=== PATIENT | male | born 1960 | race Caucasian/White ===

== ENCOUNTER 2023-06-11 08:30 | Outpatient (REF) | payer BC, SELFPAY ==
[2023-06-11 11:45] LABS: MANUAL DIFF FLAG NO
[2023-06-11 11:51] LABS: Basophils Absolute Auto 0.1 X10*3/uL (0.0-0.2); Basophils Percent Auto 0.8 % (0-2); Eosinophils Absolute Auto 0.4 X10*3/uL (0.0-0.4); Eosinophils Percent Auto 4.8 % (0-4); Hematocrit 44.8 % (42.0-52.0); Hemoglobin 14.2 g/dl (14.0-18.0); Imm Gran Abs Auto 0.08 X10*3/uL (0.00-0.03); Lymphocytes Absolute Auto 1.5 X10*3/uL (1.2-4.9); Lymphocytes Percent Auto 18.9 % (20-40); Mean Corpuscular HGB Conc 31.7 g/dl (31.0-36.0); Mean Corpuscular Hemoglobin 28.9 pg (27.0-33.0); Mean Corpuscular Volume 91.1 fL (80.0-98.0); Mean Platelet Volume 10.5 fL (9.4-12.4); Monocytes Absolute Auto 0.7 X10*3/uL (0.1-1.2); Monocytes Percent Auto 8.4 % (2-11); Neutrophils Absolute Auto 5.2 x10*3/uL (2.0-8.3); Neutrophils Percent Auto 66.1 % (45-73); Platelet Count 225 X10*3/uL (160-400); Red Blood Count 4.92 X10*6/uL (4.60-5.80); Red Cell Distribution Width 13.7 % (11.0-16.0); White Blood Count 7.9 X10*3/uL (4.8-10.8)
[2023-06-11 12:43] LABS: Alanine Aminotransferase 16 U/L (0-40); Albumin Level 4.3 g/dL (3.5-5.0); Alkaline Phosphatase 56 U/L (39-117); Anion Gap 12 (12-20); Aspartate Amino Transferase 20 U/L (5-37); Bilirubin Total 0.5 mg/dL (0.0-1.0); Blood Urea Nitrogen 21 mg/dL (9-16); Calcium 9.6 mg/dL (8.4-10.2); Carbon Dioxide 28 mmol/L (22-29); Chloride 106 mmol/L (96-108); Cholesterol 252 mg/dL (<200); Estimated Glomerular Filt Rate > 60; Glucose Random 113 mg/dL (60-115); HDL Cholesterol 89 mg/dL (>40); LDL Cholesterol Calculated 147 mg/dL (<100); Potassium 4.3 mmol/L (3.3-5.1); Sodium 142 mmol/L (135-145); Total Protein 7.1 g/dL (6.5-8.0); Triglycerides 80 mg/dL (<150)
[2023-06-11 12:53] LABS: Prostate Specific Antigen 0.27 ng/mL (<0.05-4.0)
== END 2023-06-11 08:31 | disposition home or self-care (01) ==
LOC: HO.HHCL 08:30
PROVIDERS: Visit Provider Internal Medicine Geriatric Medicine
DX: Z00.00 Encounter for general adult medical examination without abnormal findings (principal); Z12.5 Encounter for screening for malignant neoplasm of prostate; I10 Essential (primary) hypertension; E78.00 Pure hypercholesterolemia, unspecified
CPT/HCPCS: 36415; 80053; 80061; 84153; 85025

== ENCOUNTER 2025-01-12 08:26 | Outpatient (REF) | payer BC, SELFPAY ==
--- OUTSIDE RECORDS SUMMARY | 2025-01-07 09:30 | XMS_ITS | Encounter Summary ---
Author Organization [employer] Address [address] [facility] 7t [place] [address] Care Team Providers Care Safe Technician Name Role Phone Name, Prashant BARKER Primary Care Provider [phone] Reason for Visit * Reason Comments Blood Pressure Check Encounter Details Date Type Department Care Team ([facility] st Contact Info) Description 01/07/2025 9:30 AM EDT Telemedicine [facility] MEDICINE [address] [place], [place] [phone] La Beltran RN Essential hypertension Social History Tobacco Use Types Packs/Day Years Used Date Smoking Tobacco: Former Cigarettes Q uit: 10/22/2022 Smokeless Tobacco: Never Alcohol Use Standard Drinks/Week Comments Not Currently 0 (1 standard drink = 0.6 oz pur e alcohol) Quit in the 90s Depression Answer Date Recorded Patient Health Questionnaire-9 Score 0 12/23/2024 Patient Health Questionnaire-9 Score 0 12/23/2024 Last PHQ-9: Questionnaire Data Not on file 0 12/23/2024 Housing Stability Answer Date Recorded What is your housing situation today? I have artur jamison 12/23/[address] you li ve. Do you have problems with any of the following? None of the above 12/23/2024 Food Insecurity Answer Date Recorded Within the past 12 months, y ou worried that your food would run out before you got money to buy more: Never True 12/23/2024 Within the past 12 months,th e food you bought just didn't last and you didn't have enough money to get more: Never True Transportation Answer Date Recorded In the past 12 months, has l ack of transportation kept you from medical appts, meetings, work or from getting things needed for daily living? No 12/23/2024 Utilities Answer Date Recorded In the past 12 months, has t he electric, gas, oil or water company threatened to shut off services in your home? No 12/23/2024 Depression Answer Date Recorded Patient Health Questionnaire-2 Score 0 12/23/2024 Internet Access Answer Date Recorded Internet Access Q1 Yes 12/23/2024 Internet Access Q2 Not on file 12/23/2024 Sex and Gender Information Value Date Recorded Sex Assigned at Male 03/04/2022 10:29 AM EDT Legal Sex Male 10:29 AM EDT Gender Identity Male 03/04/2022 10:29 AM EDT Sexual Orientation Straight 03/04/2022 10 :29 AM EDT documented as of this encounter Progress Notes * La Beltran RN - 01/07/2025 9:30 AM EDT SUBJECTIVE: Anibal Swift is a 64 y.o. year old male who presents for Blood Pressure Check Recommendations at last visit were: Prashant Logan MD: Elevated blood pressure reading Comments: BP is normal at home. I did not start any medication. I prescribed a new BP monitor. Follow-up televisit with team nurses for BP check next week. Today, Anibal Swift does not complain of any blurred vision, shortness of breath, chest pain, dizziness, or headaches. Pt reports they will get head pressure occasionally, but denies current symptom. Pt reports they are tired at times but denies dizziness. Pt denies smoking cigarettes or drinkingalcohol. Pt reports they exercise by walking the dog. Pt reports they are constantly up and moving doing yard work, walking the dog, etc. Pt reports they typically do not eat breakfast. Pt reports they typically eat leftovers for lunch. Pt reports dinner consists of vegetables, meat (chicken, pork,fish), and a starch. Current Medications[1] Patient Active Problem List Diagnosis Date Noted Social phobia 11/18/2023 Tubular adenoma of colon 05/29/2023 Chronic obstructive lung disease ([facility]) 10/10/2017 Opioid abuse ([facility]) 09/20/2015 Essential hypertension 06/14/2015 Chronic pain 05/26/2013 High cholesterol 06/19/2011 Cervical spine disease 07/05/2010 Radicular pain in left arm 07/05/2010 Neck pain 02/16/2008 Depression 02/02/2008 Anxiety 02/02/2008 Tobacco use disorder 02/02/2008 Asthma 05/06/2005 Tubular adenoma 05/28/2022 Atorvastatin and Simvastatin BP Readings from Last 4 Encounters: 12/23/24 (!) 175/100 11/18/23 (!) 185/85 05/29/23 166/85 05/28/22 (!) 178/92 Pulse Readings from Last 4 Encounters: 12/23/24 94 11/18/23 70 05/29/23 69 05/28/22 84 OBJECTIVE: BP and HR Lo12/23/24 PM: 106/73 HR 84 12/24/24 AM: 114/83 HR 65 12/24/24 PM: 109/92 HR 70 12/25/24: Did not take BP this day 12/26/24 AM: 104/76 HR 60 12/26/24 PM: 128/114 HR 73 12/27/24 AM: 106/75 HR 59 12/27/24 PM: 94/74 HR 78 12/28/24 AM: 115/75 HR 61 12/28/24 PM: 81/65 HR 82 12/29/24 AM: 112/72 HR 58 12/29/24 PM: 122/82 HR 71 12/30/24 AM: 113/70 HR 60 12/30/24 PM: 128/82 HR 73 12/31/24 AM: 128/75 HR 70 12/31/24 PM: 101/68 HR 79 01/01/25 AM: 123/82 HR 56 01/01/25 PM: 123/80 HR 85 01/02/25 AM: 135/88 HR 57 01/02/25 PM: 115/87 HR 83 01/03/25 AM: 130/81 HR 60 01/03/25 PM: 99/64 HR 82 01/04/25 AM: 142/90 HR 58 01/04/25 PM: 112/73 HR 76 01/05/25 AM: 127/82 HR 61 01/05/25 PM: 115/76 HR 79 01/06/25 AM: 151/92 HR 62 01/06/25 PM: 94/70 HR 82 ASSESSMENT: Achieve goal blood pressure of <140/90 or <130/80 PLAN: Today's findings forwarded to PCP to review and advise Anibal Swift advised to continue exercise. Advised pt to avoid fried, fatty, processed foods, foods high in salt. Advised to eat fruits, vegetables, baked chicken, turkey, and fish. Anibal Swift agreeable to plan discussed at today's visit. Future Appointments Date Time Provider Department Center 03/14/2025 11:15 AM Prashant Logan MD MEDICINE [facility] La Beltran RN [1] Current Outpatient Medications Medication Sig Dispense Refill albuterol (2.5 MG/3ML) 0.083% nebulizer solution INHALE 3ML BY NEBULIZATION ROUTE FOUR TIMES EVERY DAY 90 mL 1 albuterol 108 (90 Base) MCG/ACT inhaler INHALE 2 PUFFS BY MOUTH EVERY 6 HOURS IF NEEDED FOR WHEEZING 18 g 3 Anoro Ellipta 62.5-25 MCG/ACT aerosol powder INHALE 1 PUFF BY INHALATION ROUTE EVERY DAY AT THE SAME TIME EACH DAY 60 each 1 Blood Pressure kit Please check BP at home once a day 1 kit 0 No current facility-administered medications for this visit. documented in this encounter Plan of Treatment Upcoming Encounters Date Type Department Care Team (Late st Contact Info) Description 03/14/2025 11:15 AM EST Office Visit [facility] MEDICINE [address] [place] [phone] Prashant Logan MD [address] [place] [phone] documented as of this encounter Visit Diagnoses Diagnosis Essential hypertension Unspecified essential hypertension documented in this encounter Additional Health Concerns Assessment Noted Time PHQ-9 Depression Total Score: 0 12/24/19 25 10:17 AM EDT documented as of this encounter Care Teams Safe Technician Relationship Specialty Start Date End Date Prashant Logan MD [address] [place] [phone] PCP - General Family Medicine 06/14/15 documented as of this encounter
--- OUTSIDE RECORDS SUMMARY | 2025-01-12 09:44 | XMS_ITS | Encounter Summary ---
Author Organization [employer] Address [address] [facility] 7 [place] [address] Care Team Providers Care Match Maker Name Role Phone Name, Prashant BARKER Primary Care Provider Encounter Details Date Type Department Care Team (Late st Contact Info) Description 11/18/2024 Orders Only [facility] [address] [place], [place] [phone] Provider, MD [facility] Social History Tobacco Use Types Packs/Day Years Used Date Smoking Tobacco: Former Cigarettes Q uit: 10/22/2022 Smokeless Tobacco: Never Alcohol Use Standard Drinks/Week Comments Not Currently 0 (1 standard drink = 0.6 oz pur e alcohol) Quit in the 90s Depression Answer Date Recorded Patient Health Questionnaire-9 Score 0 05/29/2023 Patient Health Questionnaire-9 Score 0 05/29/2023 Last PHQ-9: Questionnaire Data Not on file 0 05/29/2023 Housing Stability Answer Date Recorded What is your housing situation today? I have artur jamison 03/15/[address] you li ve. Do you have problems with any of the following? None of the above 03/15/2023 Food Insecurity Answer Date Recorded Within the past 12 months, y ou worried that your food would run out before you got money to buy more: Never True 03/15/2023 Within the past 12 months,th e food you bought just didn't last and you didn't have enough money to get more: Never True 03/2023 Transportation Answer Date Recorded In the past 12 months, has l ack of transportation kept you from medical appts, meetings, work or from getting things needed for daily living? No 03/15/2023 Utilities Answer Date Recorded In the past 12 months, has t he electric, gas, oil or water company threatened to shut off services in your home? No 03/15/2023 Depression Answer Date Recorded Patient Health Questionnaire-2 Score 0 05/29/2023 Sex and Gender Information Value Date Recorded Sex Assigned at Male 03/04/2022 10:29 AM EDT Legal Sex Male 10:29 AM EDT Gender Identity Male 03/04/2022 10:29 AM EDT Sexual Orientation Straight 03/04/2022 10 :29 AM EDT documented as of this encounter Plan of Treatment Upcoming Encounters Date Type Department Care Team (Late st Contact Info) Description 03/14/2025 11:15 AM EST Office Visit [facility] MEDICINE [address] [place] [id number] Name, MD Prashant [address] [place] [phone] documented as of this encounter Procedures Procedure Name Priority Date/Time Associated Diagnosis Comments CT LUNG SCREENING Routine 11/14/2024 10:48 AM EDT documented in this encounter Results * CT Lung Screening Low dose (11/14/2024 10:48 AM EDT) Anatomical Region Laterality Modality Lung Computed Tomogra phy us Historical Provider MD AGUERO CT PROCEDURES Final R esult documented in this encounter Visit Diagnoses Not on filedocumented in this encounter Additional Health Concerns Assessment Noted Time PHQ-9 Depression Total Score: 0 05/29/19 24 9:15 AM EST documented as of this encounter Care Teams Match Maker Relationship Specialty Start Date End Date Name, MD Prashant [address] [place] [id number] PCP - General Family Medicine 06/14/15 documented as of this encounter
--- OUTSIDE RECORDS SUMMARY | 2025-01-12 09:44 | XMS_ITS | Clinical Summary ---
Author Organization [facility] Address [address] [place] [address] Phone Care Team Providers Care Brimmer Blocker Name Role Phone Unavailable Primary Care Provider Unavailabl e Allergies No known active allergies Encounters Date Type Department Care Team Description 11/14/2024 7:31 AM EDT - 11/14/2024 11:59 PM EDT Hospital Encounter [facility] CT Scan [address] [place] [address] Encounter for screening for malignant neoplasm of respiratory organs; Nicotine dependence, cigarettes, uncomplicated Discharge Disposition: Home or Self Care 10/21/2024 Telephone Lung Screening Program - [place] [address] [facility] [address] [place] [phone] Mere Ernst [place] from Last 3 Months Social History Tobacco Use Types Packs/Day Years Used Date Smoking Tobacco: Never Assessed Sex and Gender Information Value Date Recorded Sex Assigned at Not on file Legal Sex Male 4:01 AM EST Gender Identity Not on file Sexual Orientation Not on file Plan of Treatment Health Maintenance Due Date Last Done Comments Hepatitis A Vaccines (1 of 2 - Risk 2-dose series) 1977 Zoster Vaccines (1 of 2) 2008 RSV Immunization Adult Patients (1 - Risk 60-74 years 1-dose series) 2018 Pneumococcal Vaccine: 50+ Years (2 of 2 - PCV) 06/12/2019 06/12/2018 Abdominal Aortic Aneurysm (AAA) Screen 04/07/2022 Colorectal Cancer Screening: Colonoscopy 04/07/2022 Hepatitis C Screening 04/07/2022 Medicare Annual Wellness Visit 04/07/2022 Social Influencers of Health Screening 04/07/2022 Hypertension/CHF/CAD Annual BMP Blood Test 04/20/2022 Falls Risk Assessment 11/11/2023 Depression Screening 05/05/2024 COVID-19 Vaccine ( season) 2025 05/28/2022, 04/19/2021, 08/13/2020, Additional history exists Influenza Vaccine (#1) 2025 2, 02/21/2021, 01/24/2020, Additional history exists DTaP,Tdap,and Td Vaccines (4 - Td or Tdap) 11/15/2026 11/15/2016, 02/04/2003, 02/04/2003 Cholesterol Screening (Lipid Panel) 06/11/2028 06/11/2023 HIB Vaccines Aged Out No longer eligi ble based on patient's age to complete this topic HPV Vaccines Aged Out No longer eligi ble based on patient's age to complete this topic Hepatitis B Vaccines Aged Out No long er eligible based on patient's age to complete this topic IPV Vaccines Aged Out No longer eligi ble based on patient's age to complete this topic MMR Vaccines Aged Out No longer eligi ble based on patient's age to complete this topic Meningococcal ACWY Vaccine Aged Out N o longer eligible based on patient's age to complete this topic Meningococcal B Vaccine Aged Out No l onger eligible based on patient's age to complete this topic RSV Immunization Patients Under 20 months Aged Out No longer eligible based on patient's age to complete this topic Varicella Vaccines Aged Out No longer eligible based on patient's age to complete this topic Procedures Procedure Name Priority Date/Time Associated Diagnosis Comments CT LUNG SCREENING Routine 11/14/2024 7:4 0 AM EDT Encounter for screening for malignant neoplasm of respiratory organs Nicotine dependence, cigarettes, uncomplicated from Last 3 Months Results * CT Lung Screening (11/14/2024 7:40 AM EDT) Anatomical Region Laterality Modality Chest Computed Tomogra phy 11/16/2024 3:25 PM EDT Impressions 11/16/2024 3:33 PM EDT Impression: No suspicious developing pulmonary nodule. No significant change. Lung-RADS Category: Lung-RADS 2: Nodule(s) with benign appearance or behavior. Continue annual screening with Low Dose Chest CT in 12 months. [employer] IRA ([id number]) -------- FINAL REPORT -------- Dictated By: Mary Singh Dictated Date: 11/16/2024 15:25 ET Assigned Physician: Mary Singh Reviewed and Electronically Signed By: Mary Singh Signed Date: 11/16/2024 15:33 ET Workstation ID: [id number] Transcribed By: Self Edit Transcribed Date: 11/16/2024 15:25 ET Narrative 11/16/2024 3:33 PM EDT History: 64 year-old 53 pack-year current smoker, asymptomatic, for lung cancer screening. Comparison: 11/12/23 Technique: Helical volumetric imaging of the thorax was performed, using low- dose technique, without IV contrast. DLP: 122.44 mGy/cm CTDIvol: 3.22 mGy GE JuiceBoxJunglepeed VCT Iterative reconstruction technique Findings: Lungs and Airways: The trachea and central bronchial tree remain patent. Diffuse bronchial wall thickening is again seen, consistent with bronchitis in this setting. Centrilobular emphysema is again noted. Rare sub-4 mm solid, noncalcified pulmonary nodules are without significant change. No suspicious developing nodule is seen. Pleura: No pleural or pericardial effusions are seen. Base of neck, mediastinum and heart: The heart remains normal in size. Mild coronary artery calcification is noted. The left vertebral artery arises from the aortic arch, an anatomic variant. No developing thoracic lymphadenopathy is seen. Soft tissues: The overlying soft tissues are unremarkable. Abdomen: This study was performed without contrast and with lower than standard dose. These factors reduce the sensitivity for detection of small lesions in the upper abdomen. A 5 mm hepatic cyst is unchanged. Calcifications scattered throughout the pancreatic parenchyma may represent underlying chronic pancreatitis, unchanged. Procedure Note Mary Singh MD - 11/16/2024 History: 64 year-old 53 pack-year current smoker, asymptomatic, for lungcancer screening. Comparison: 11/12/23 Technique: Helical volumetric imaging of the thorax was performed, usinglow-dose technique, without IV contrast. DLP: 122.44 mGy/cm CTDIvol: 3.22 mGy Perficientpeed VCT Iterative reconstruction technique Findings: Lungs and Airways: The trachea and central bronchial tree remain patent.Diffuse bronchial wall thickening is again seen, consistent withbronchitis in this setting. Centrilobular emphysema is again noted. Rare sub-4 mm solid, noncalcified pulmonary nodules are withoutsignificant change. No suspicious developing nodule is seen. Pleura: No pleural or pericardial effusions are seen. Base of neck, mediastinum and heart: The heart remains normal in size.Mild coronary artery calcification is noted. The left vertebral arteryarises from the aortic arch, an anatomic variant. No developing thoraciclymphadenopathy is seen. Soft tissues: The overlying soft tissues are unremarkable. Abdomen: This study was performed without contrast and with lower thanstandard dose. These factors reduce the sensitivity for detection of smalllesions in the upper abdomen. A 5 mm hepatic cyst is unchanged.Calcifications scattered throughout the pancreatic parenchyma mayrepresent underlying chronic pancreatitis, unchanged. IMPRESSION: Impression: No suspicious developing pulmonary nodule. No significant change. Lung-RADS Category: Lung-RADS 2: Nodule(s) with benign appearance orbehavior. Continue annual screening with Low Dose Chest CT in 12 months. [employer] [place] ([id number]) -------- FINAL REPORT -------- Dictated By: Mary Singh Dictated Date: 11/16/2024 15:25 ET Assigned Physician: Mary Singh Reviewed and Electronically Signed By: Mary Singh Signed Date: 11/16/2024 15:33 ET Workstation ID: [id number] Transcribed By: Self Edit Transcribed Date: 11/16/2024 15:25 ET Susana Trent MD IM CT PROCEDURES Final Result from Last 3 Months Insurance BLUE [employer] - [place] MEDICARE ADVANTAGE
--- OUTSIDE RECORDS SUMMARY | 2025-01-12 09:44 | XMS_ITS | Encounter Summary ---
Author Organization [employer] Address [address] [facility] 7t [place] [address] Care Team Providers Care Equal Opportunity Specialist Name Role Phone Name, Prashant BARKER Primary Care Provider [phone] Encounter Details Date Type Department Care Team (Late st Contact Info) Description 05/13/2022 Orders Only [facility]ED[facility] [address] [place] [address] Florencia Garber LPN Social History Tobacco Use Types Packs/Day Years [...] Description 03/14/2025 11:15 AM EST Office Visit [facility] MEDICINE [address] [place] [address] Name, MD Prashant [address] [place] [address] documented as of this encounter Visit Diagnoses Not on filedocumented in this encounter Care Teams Equal Opportunity Specialist Relationship Specialty Start Date End Date NamePrashant MD [address] [place] [address] PCP - General Family Medicine 06/14/15 documented as of this encounter
--- OUTSIDE RECORDS SUMMARY | 2025-01-12 09:44 | XMS_ITS | Encounter Summary ---
Author Organization [employer] Address [address] [facility] [address]t [place] [address] Care Team Providers Care Special Education Teaching Assistant Name Role Phone Name, Prashant BARKER Primary Care Provider [phone] Encounter Details Date Type Department Care Team (Latest Contact Info) Description 01/07/2025 Travel Social History Tobacco Use Types Packs/Day Years [...] Description 03/14/2025 11:15 AM EST Office Visit [facility] MEDICINE [address] [place] [address] Name, MD Prashant [address] [place] [address] documented as of this encounter Visit Diagnoses Not on filedocumented in this encounter Additional Health Concerns Assessment Noted Time PHQ-9 Depression Total Score: 0 12/24/19 25 10:17 AM EDT documented as of this encounter Care Teams Special Education Teaching Assistant Relationship Specialty Start Date End Date Name, MD Prashant [address] [place] [phone] PCP - General Family Medicine 06/14/15 documented as of this encounter
--- OUTSIDE RECORDS SUMMARY | 2025-01-12 09:44 | XMS_ITS | Encounter Summary ---
Author Organization [employer] Address [address] [facility] 7t [place] [address] Care Team Providers Care Clerical Warehouseman Name Role Phone Name, Prashant BARKER Primary Care Provider [phone] Encounter Details Date Type Department Care Team (Late st Contact Info) Description 01/10/2025 Telephone [facility] MEDICINE [address] [place], [place] [phone] Name, MD Prashant [address] [place], [place] [phone] Social History Tobacco Use Types Packs/Day Years [...] AM EDT documented as of this encounter Miscellaneous Notes * Telephone Encounter - La Beltran RN - 01/10/2025 2:22 PM EDT Incoming TC from pt. Advised pt per below PCP message, BP is good and no med changes at this time. Pt verbalized understanding and denies questions at this time. ----- Message from Prashant Logan MD sent at 01/07/2025 4:38 PM EDT ----- BP is good, no med changes * Telephone Encounter - Prashant Zapien - 01/10/2025 2:18 PM EDT Tc from pt returning call back regarding prior message. Contact pt at [phone] * Telephone Encounter - La Beltran RN - 01/10/2025 8:59 AM EDT TC placed to pt to inform and advise of below PCP message. No answer, call immediately goes to message, I'm sorry, your call did not go through. Will you please try your call again. TC placed to spouse's phone number. No answer, LVM to call office back and ask to speak to the blue team nurses. ----- Message from Prashant Logan MD sent at 01/07/2025 4:38 PM EDT ----- BP is good, no med changes documented in this encounter Plan of Treatment Upcoming Encounters Date Type Department Care Team (Late st Contact Info) Description 03/14/2025 11:15 AM EST Office Visit [facility] MEDICINE [address] [place] [address] Name, MD Prashant [address] [place] [address] documented as of this encounter Visit Diagnoses Not on filedocumented in this encounter Additional Health Concerns Assessment Noted Time PHQ-9 Depression Total Score: 0 12/24/19 25 10:17 AM EDT documented as of this encounter Care Teams Clerical Warehouseman Relationship Specialty Start Date End Date Name, MD Prashant [address] [place] [phone] PCP - General Family Medicine 06/14/15 documented as of this encounter
--- OUTSIDE RECORDS SUMMARY | 2025-01-12 09:44 | XMS_ITS | Encounter Summary ---
Author Organization [employer] [facility] Address [address] [facility] 7t [place] [address] Care Team Providers Care Awning Maker Name Role Phone Name, Prashant BARKER Primary Care Provider [phone] Encounter Details Date Type Department Care Team (Late st Contact Info) Description 10/04/[address] [phone] NamePrashant MD [address] [place] [address] [phone] Social History Tobacco Use Types Packs/Day Years Used Date Smoking Tobacco: Every Day Cigarettes Smokeless Tobacco: Never Depression Answer Date Recorded Patient Health Questionnaire-2 Score 0 05/28/2022 Sex and Gender Information Value Date Recorded Sex Assigned at Male 03/04/2022 10:29 AM EDT Legal Sex Male 10:29 AM EDT Gender Identity Male 03/04/2022 10:29 AM EDT Sexual Orientation Straight 03/04/2022 10 :29 AM EDT documented as of this encounter Plan of Treatment Upcoming Encounters Date Type Department Care Team (Late st Contact Info) Description 03/14/2025 11:15 AM EST Office Visit [address] [address] Prashatn Logan MD [address] [place] [address] [phone] documented as of this encounter Procedures Procedure Name Priority Date/Time Associated Diagnosis Comments COLONOSCOPY Routine 07/18/2016 1:51 PM EDT documented in this encounter Results * Colonoscopy (07/18/2016 1:51 PM EDT) Colonoscopy Normal Normal Narrative Rae Novak - 07/18/2016 1:51 PM EDT Recommended 5 year follow up us Historical Provider HEALTH MAINTENANCE Final Result documented in this encounter Visit Diagnoses Not on filedocumented in this encounter Care Teams Awning Maker Relationship Specialty Start Date End Date Name, MD Prashant [address] [place] [address] PCP - General Family Medicine 06/14/15 documented as of this encounter
--- OUTSIDE RECORDS SUMMARY | 2025-01-12 09:44 | XMS_ITS | Clinical Summary ---
Author Organization [employer] Address [address] [facility] [facility] [address] [place] [address] Care Team Providers Care Shipping/Receiving Manager Name Role Phone Name, Prashant BARKER Primary Care Provider [phone] Allergies Active Allergy Reactions Criticality Noted Date Comments Atorvastatin 02/15/2015 Muscle pain Simvastatin 06/14/2015 Medications albuterol 108 (90 Base) MCG/ACT inhalerIndicati ons:Chronic obstructive pulmonary disease, unspecified COPD type (CMS/HCC) INHALE 2 PUFFS BY MOUTH EVERY 6 HOURS IF NEEDED FOR WHEEZING 18 g 3 3 Active albuterol (2.5 MG/3ML) 0.083% nebulizer solution INHALE 3ML BY NEBULIZATION ROUTE FOUR TIMES EVERY DAY 90 mL 1 3 Active Anoro Ellipta 62.5-25 MCG/ACT aerosol powderIndicatio ns:Chronic obstructive pulmonary disease, unspecified COPD type (CMS/HCC) INHALE 1 PUFF BY INHALATION ROUTE EVERY DAY AT THE SAME TIME EACH DAY 60 each 1 5 Active Blood Pressure kit Please check BP at home once a day 1 kit 5 Active Active Problems Problem Noted Date Diagnosed Date Social phobia 11/18/2023 Tubular adenoma of colon 05/29/2023 Tubular adenoma 05/28/2022 Overview (05/28/2022): Patient had colonoscopy 2016 at [facility], he was recommended repeat in 5 years Chronic obstructive lung disease 10/10/2017 Opioid abuse 09/20/2015 Essential hypertension 06/14/2015 Chronic pain 05/26/2013 High cholesterol 06/19/2011 Cervical spine disease 07/05/2010 Radicular pain in left arm 07/05/2010 Neck pain 02/16/2008 Overview (05/23/2022): With radiation to both arm with L>R and no weakness. Depression 02/02/2008 Anxiety 02/02/2008 Tobacco use disorder 02/02/2008 Asthma 05/06/2005 Resolved Problems Problem Noted Date Diagnosed Date Resolved Date Low back pain 02/02/2008 05/29/2023 Overview (05/23/2022): Failed low back surgery. Chronic low back pain with radiation to the legs L>R. Intra-abdominal hernia 02/02/200805/28 Overview (05/23/2022): IMO update Encounters Date Type Department Care Team Description 01/10/[address] [address] Prashant Logan MD 01/07/2025 9:30 AM EDT Telemedicine [address] [address] La Beltran RN Essential hypertension 01/07/2025 Travel 12/23/2024 9:45 AM EDT Office Visit [address] [address] Prashant Logan MD Chronic obstructive pulmonary disease, unspecified COPD type (CMS/HCC) (Primary Dx); Elevated blood pressure reading; Screening for colon cancer; Encounter for immunization; Screening for cholesterol level 12/23/2024 Travel 12/22/2024 Telephone [facility] [address] [place] [id number] Prashant Logan MD Chart Prep 12/16/2024 Patient Outreach [facility] [address] [place], [place] [phone] Prashant Logan MD Pre-visit Planning ([facility] unable to reach, disconnected) 11/18/2024 Orders Only [facility] [address] [place], [place] [phone] Provider, MD Solis from Last 3 Months Immunizations Immunization Administration Dates Next Due Influenza Injectable Quadriv alant Preservative Free IIV4 MDCK 01/28/2022,02/21/2021 Influenza injectable quadriv alent IIV4 with preservative 02/19/2017,02/22/2016 Influenza injectable quadriv alent preservative free 01/24/2020,02/15/2019,02/14/2019,04/10 Influenza, IIV3, injectable 02/15/2015,1 ,02/03/2013,01/13,05/15/2010,05/09/2009,02/02/2008 Novel [id number], preservative-free 05/09/2009 Pfizer Covid-19 Vaccine 12+ Bivalent 05/28/2022 Pneumococcal Conjugate PCV 20 12/23/2024 Pneumococcal Polysaccharide PPSV23 06/12/2018 Td (adult), unspecified 02/04/2003 Tdap 11/15/2016,02/04/2003 Social History Tobacco Use Types Packs/Day Years Used Date Smoking Tobacco: Former Cigarettes Q uit: 10/22/2022 Smokeless Tobacco: Never Tobacco Cessation:Counseling Given: Not Answered Alcohol Use Standard Drinks/Week Comments Not Currently [...] Orientation Straight 03/04/2022 10 :29 AM EDT Last Filed Vital Signs Vital Sign Reading Time Taken Comments Blood Pressure 175/100 12/23/2024 10:01 AM EDT Pulse 94 12/23/2024 9:47 AM EDT Temperature 36.6 C (97.8 F) 12/23/2024 9:47 AM EDT Respiratory Rate 18 12/23/2024 9:47 AM EDT Oxygen Saturation 98% 12/23/2024 9:47 AM EDT Inhaled Oxygen Concentration - - Weight 64.9 kg (143 lb) 12/23/2024 9:47 AM EDT Height 170.2 cm (5' 7 ) 12/23/2024 9:47 AM EDT Body Mass Index 22.4 12/23/2024 9:47 AM EDT Plan of Treatment Upcoming Encounters Date Type Department Care Team (Late st Contact Info) Description 03/14/2025 11:15 AM EST Office Visit [facility] [address] [place] [address] Name, MD Prashant [address] [place] [address] Health Maintenance Due Date Last Done Comments CT Colonography 1958 FIT DNA/Cologuard 1958 FIT 1958 FOBT 1960 Sigmoidoscopy 1960 Hepatitis C Screening 1976 Zoster Vaccines (1 of 2) 2008 RSV Patients and Patients Aged 60 years or older (1 - Risk 60-74 years 1-dose series) 2018 Colonoscopy 07/18/2021 07/18/2016 Colorectal Cancer Screening 07/18/2021 COVID-19 Vaccine ( season) 2025 05/28/2022, 04/19/2021, 08/13/2020, Additional history exists Influenza Vaccine (#1) 2025 2, 02/21/2021, 01/24/2020, Additional history exists Alcohol/Substance Use Screening 12/23/2025 12/23/2024 Depression Screening 12/23/2025 12/23/2024, 12/24/19 25 SDOH Screening 12/23/2025 12/23/2024 Tobacco Screening 12/23/2025 12/23/2024 DTaP/Tdap/Td Vaccines (4 - Td or Tdap) 11/15/2026 11/15/2016, 02/04/2003, 02/04/2003 Lipid Panel 06/11/2028 06/11/2023, 06/13/2022 Pneumococcal Vaccine: 50+ Years Completed 12/23/2024, 06/12/2018 HIB Vaccines Aged Out No longer eligi ble based on patient's age to complete this topic HPV Vaccines Aged Out No longer eligi ble based on patient's age to complete this topic Hepatitis A Vaccines Aged Out No long er eligible [...] patient's age to complete this topic Meningococcal Vaccine Aged Out No andrew gideon eligible based on patient's age to complete this topic RSV under 20 months Aged Out No longe r eligible based on patient's age to complete this topic Rotavirus Vaccines Aged Out No longer eligible based on patient's age to complete this topic Procedures Procedure Name Priority Date/Time Associated Diagnosis Comments CT LUNG SCREENING Routine 11/14/2024 10: 48 AM EDT LIPID PANEL, STANDARD Routine 06/11/2023 8:32 AM EST High cholesterol HM COLONOSCOPY Routine 07/18/2016 1:51 PM EDT from Last 3 Months or Most Recently Relevant to Health Maintenance Results * CT Lung Screening Low dose (11/14/2024 10:48 AM EDT) Anatomical Region Laterality Modality Lung Computed Tomogra phy us Historical Provider MD AGUERO CT PROCEDURES Final R esult * (ABNORMAL) Lipid Panel, Standard (06/11/2023 8:32 AM EST) Triglycerides 80 <150 mg/dL [facility] Comment:Desirable Triglyceri de: less than 150 mg/dLBorderline High Triglyceride 150-199 mg/dLHigh Triglyceride: 200-499 mg/dLVery High Triglyceride: greater than or equal to 5OO mg/dL Cholesterol 252(H) <200 mg/dL [facility] Comment:Desirable Cholestero l: less than 200 mg/dLBorderline High Cholesterol: 200-239 mg/dLHigh Cholesterol: greater than 239 mg/dL LDL Cholesterol Calculated 147(H) <100 mg/dL [facility] Comment:Desirable LDL: less than 100 mg/dLNear Optimal/Above Optimal LDL: 110- 129 mg/dLBorderline High LDL: 130-159 mg/dLHigh LDL: 160-189 mg/dLVery High LDL: greater than or equal to 190 mg/dL HDL Cholesterol 89 >40 mg/dL [facility] Comment:Desirable HDL: great er than 40 mg/dL Note: This HDL assay may give artificially low results in patients with liver disease. Blood Venous blood specimen / Unknown 06/11/2023 8:32 AM EST 06/11/2023 11:46 AM EST us Prashant Logan MD LAB BLOOD ORDERABLES Final Resul t [facility] [address] [place] [phone] * Hm Colonoscopy (07/18/2016 1:51 PM EDT) Colonoscopy Normal Normal Narrative Rae Novak - 07/18/2016 1:51 PM EDT Recommended 5 year follow up Historical Provider HEALTH MAINTENANCE Final Result from Last 3 Months or Most Recently Relevant to Health Maintenance Insurance [employer] PPO Care Teams Shipping/Receiving Manager Relationship Specialty Start Date End Date Name, MD Prashant [address] [place] [address] PCP - General Family Medicine 06/14/15
--- OUTSIDE RECORDS SUMMARY | 2025-01-12 09:44 | XMS_ITS | Encounter Summary ---
Author Organization [employer] Address [address] [place] [address] Care Team Providers Care Hr Consultant Name Role Phone Name, Prashant BARKER Primary Care Provider [phone] Reason for Visit * Reason Onset Date Comments Prior Authorization 10/29/2022 Encounter Details Date Type Department Care Team (Late st Contact Info) Description 10/29/2022 Telephone [facility] [address] [place], [place] [phone] Name, MD Prashant [address] [place] [address] Prior Authorization Social History Tobacco Use Types Packs/Day Years [...] encounter Miscellaneous Notes * Telephone Encounter - Ashia Allen - 10/29/2022 8:07 AM EDT Tc from patients spouse calling in regards to to PA for medication albuterol 108 (90 Base) MCG/ACT inhaler. States due to pharmacy switching to [facility] it's required. Patient is almost out of medication. documented in this encounter Plan of Treatment Upcoming Encounters Date Type Department Care Team (Late st Contact Info) Description 03/14/2025 11:15 AM EST Office Visit [facility] [address] [place] [address] Name, [place] [address] documented as of this encounter Visit Diagnoses Not on filedocumented in this encounter Care Teams Hr Consultant Relationship Specialty Start Date End Date Name, [place] [address] PCP - General Family Medicine 06/14/15 documented as of this encounter
[2025-01-12 12:43] LABS: Alanine Aminotransferase 16 U/L (0-40); Albumin Level 4.8 g/dL (3.5-5.0); Alkaline Phosphatase 56 U/L (39-117); Anion Gap 13 (12-20); Aspartate Amino Transferase 26 U/L (5-37); Blood Urea Nitrogen 17 mg/dL (9-16); Calcium 9.9 mg/dL (8.4-10.2); Carbon Dioxide 29 mmol/L (22-29); Chloride 105 mmol/L (96-108); Cholesterol 267 mg/dL (<200); Estimated Glomerular Filt Rate > 60; HDL Cholesterol 96 mg/dL (>40); Potassium 4.7 mmol/L (3.3-5.1); Sodium 142 mmol/L (135-145); Total Protein 7.5 g/dL (6.5-8.0); Triglycerides 66 mg/dL (<150)
== END 2025-01-12 08:27 | disposition home or self-care (01) ==
LOC: HO.HHCL 08:26
PROVIDERS: PCP Internal Medicine Geriatric Medicine; Visit Provider Internal Medicine Geriatric Medicine
DX: Z13.220 Encounter for screening for lipoid disorders (principal); Z13.6 Encounter for screening for cardiovascular disorders
CPT/HCPCS: 36415; 80053; 80061